=== PATIENT | male | born 1980 | race Two or more races ===

== ENCOUNTER 2020-11-27 12:42 | Outpatient (RCR) | payer BC, SELFPAY | END 2020-12-26 11:48 | disposition home or self-care (01) | LOC: PT.CARL 12:42 | PROVIDERS: Visit Provider Nurse Practitioner | DX: M25.512 Pain in left shoulder (principal) | CPT/HCPCS: 97163 ==

== ENCOUNTER → 2021-01-16 11:32 | Outpatient (CLI) | payer BC, SELFPAY ==
--- NOTE | 2021-01-16 11:36 | XR_ITS ---
PROCEDURE: XR LUMBAR SPINE 2-3V CLINICAL INDICATION: LOW BACK PAIN COMPARISON: No exams were available for comparison FINDINGS: There is straightening of the lumbar lordosis. This could be due to patient positioning or muscle spasm with minimal reversal of the thoracolumbar kyphosis. Minimal endplate hypertrophic changes present at L5 superiorly. Hypoplastic rib is present at T12. No acute fracture or dislocation. No lytic or blastic change. Other findings:None. IMPRESSION: Straightening of lumbar lordosis. Minimal spurring along the anterior superior endplate L5. Dictated by: Ivan Saunders MD 01/16/2021 18:49 Ivan Saunders MD in [facility] 01/16/2021 18:49
== END ==
PROVIDERS: PCP Nurse Practitioner; Visit Provider Nurse Practitioner
DX: M54.50 Low back pain, unspecified (principal)
CPT/HCPCS: 72100

== ENCOUNTER 2021-02-13 11:00 | Outpatient (RCR) | payer BC, SELFPAY | END 2021-03-21 16:20 | disposition home or self-care (01) | LOC: PT.CARL 11:00 | PROVIDERS: PCP Nurse Practitioner; Visit Provider Nurse Practitioner | DX: M54.50 Low back pain, unspecified (principal) | CPT/HCPCS: 97110; 97140; 97163 ==